=== PATIENT | female | born 1955 | race Caucasian/White ===

== ENCOUNTER 2016-11-02 03:12 | Emergency (ER) | payer MEDICARE, OTHER ==
[2016-11-02] MEDS ORDERED: KETOROLAC TROMETHAMINE 30 MG/1ML VIAL ONE (03:24)
[2016-11-02] MEDS ORDERED: KETOROLAC TROMETHAMINE 30 MG/1ML VIAL IVP ONE (03:26)
[2016-11-02] MEDS ORDERED: MORPHINE SULFATE 4 MG/ML DISP.SYRIN IVP ONE (03:26)
[2016-11-02] MEDS ORDERED: MORPHINE SULFATE 4 MG/ML DISP.SYRIN ONE (03:26)
[2016-11-02] MEDS ORDERED: 0.9 % SODIUM CHLORIDE 1,000 ML IV ONE (03:30)
--- NOTE | 2016-11-02 03:44 | ED Physician Documentation ---
Flank Pain - HISTORIAN Historian: patient - HPI Stated Complaint: left flank pain Chief Complaint: Flank Pain Additional Information: Left flank pain began at midnight. Waxws and wanes, Feels like previous right kidney stone pain, but worse. Duration: sudden-onset Timing: still present Context: denies: out of country travel Quality: sharp, stabbing, other (feels pressure in bladder. ) Associated Symptoms: nausea, vomiting. denies: fever - ROS CONST: no problems - SOCIAL HX Smoking History: non-smoker - FAMILY HX Family History: no significant history - PAST HX Past History: kidney stones (one) Ischemic Bowel Risk Factors: none Surgeries/Procedures: cholecystectomy - VITAL SIGNS Vital Signs: Vital Signs Temp Pulse Resp BP Pulse Ox 97.8 F 70 20 167/73 99 11/02/16 03:13 11/02/16 03:13 11/02/16 03:13 11/02/16 03:13 11/02/16 03:13 Progress - Progress Progress: HISTORY: 61-year-old female with left flank pain, nausea, history of urolithiasis COMPARISON: None available TECHNIQUE: Helical CT images of the abdomen and pelvis were performed without contrast. Sagittal and coronal reformatted images were obtained. FINDINGS: Urinary tract: There is a 4 mm calculus which is either in the left ureterovesicle junction versus urinary bladder lumen (image 296, series 2). There is associated moderate left hydronephrosis, hydroureter, and left perinephric fat stranding. There are bilateral nonobstructing renal calculi. No right ureteral calculi, hydronephrosis, or hydroureter. Miscellaneous: There are patchy ground-glass opacities in the bilateral lower lobes, slightly greater on the left. There is a moderate-sized paraesophageal hiatal hernia with estimated 1/4 of the stomach intrathoracic. The noncontrast liver, spleen, pancreas, adrenal glands are unremarkable. The gallbladder is surgically absent. No abnormal bowel dilatation, free air, free fluid, or suspicious adenopathy. There is descending and sigmoid colon diverticulosis without evidence of acute diverticulitis. The appendix is not dilated and does not appear inflamed. There is a fatty right inguinal indirect hernia. There are mild to moderate degenerative changes of the left hip. There is advanced degenerative disc disease L5-S1 with significant neural foraminal stenosis on the right at this level. IMPRESSION: 1. 4 mm calculus is either in the left ureterovesicle junction versus urinary bladder lumen. There is associated moderate left hydronephrosis and hydroureter. 2. Bilateral nonobstructing nephrolithiasis. 3. Postoperative changes of cholecystectomy. 4. Moderate size hiatal hernia. 5. Patchy ground-glass opacities in the bilateral lower lobes are nonspecific and may be related to scarring, interstitial lung disease, or atypical pneumonia. 6. Fatty right inguinal indirect hernia incidentally noted. 7. No evidence of bowel obstruction, acute appendicitis, or other acute process in the abdomen or pelvis. Electronically signed on Nov 02, 2016 4:51:55 AM CDT by: Cam Cordero ED Results Lab/Radiology - Orders Orders: ED Orders Category Date Time Status CT ABD & PELVIS W/O CON Stat Exams 11/02/16 Ordered UA [URINALYSIS] Routine Lab 11/02/16 Ordered Ketorolac Tromethamine [Toradol] Med 11/02/16 03:24 Discontinued 30 mg .ROUTE .STK-MED ONE Ketorolac Tromethamine [Toradol] Med 11/02/16 03:26 Once 30 mg IVP NOW ONE Morphine Sulfate [DepoDUR] Med 11/02/16 03:26 Discontinued 4 mg .ROUTE .STK-MED ONE Morphine Sulfate [DepoDUR] Med 11/02/16 03:26 Once 4 mg IVP NOW ONE NORMAL SALINE @ 1000 MLS/HR ( 1000ml BOLUS) Med 11/02/16 03:30 Ordered 0.9 % Sodium Chloride [Normal Saline] 1,000 ml IV Q1H Abdominal Pain Physical Exam - Physical Exam General Appearance: moderate distress EENT: eye inspection normal, ENT inspection normal, pharynx normal NECK: normal inspection, supple RESPIRATORY: no resp distress, chest non-tender, breath sounds normal CVS: reg rate & rhythm, heart sounds normal, no murmur ABDOMEN: soft, normal bowel sounds, no distension, non-tender RECTAL: deferred BACK: normal inspection, no CVA tenderness, other (no midline tenderness) SKIN: warm/dry, normal color EXTREMITIES: no evidence of injury, no edema NEURO: CN's nml as tested, motor nml, sensation nml, cognition normal Vital Signs: Vital Signs Temp Pulse Resp BP Pulse Ox 97.8 F 70 20 167/73 99 11/02/16 03:13 11/02/16 03:13 11/02/16 03:13 11/02/16 03:13 11/02/16 03:13 Discharge Clincal Impression: Kidney stone Additional Instructions: Return to the ER if you have fever of 101 or higher or pain you cannot control. Follow up with your provider as needed. Home Medications: Ambulatory Orders Furosemide [Lasix] 40 mg PO D 11/02/16 Ibuprofen [Motrin Ib] 600 mg PO D 11/02/16 Methylprednisolone [Medrol] 8 mg PO D 11/02/16 Potassium Chloride [Klor-Con M20] 20 meq PO D 11/02/16 Tramadol HCl [Ultram] 50 mg PO PRN PRN 11/02/16 Condition: Fair Disposition: 01 HOME, SELF-CARE Decision to Admit: NO Decision Time: 05:10
[2016-11-02 04:10] LABS: BASOPHILS % 0.3 (0.0-1.5); EOSINOPHILS % 0.2 % (0.0-6.8); MEAN CORPUSCULAR HEMOGLOBIN 27.9 pg (28.0-34.0); MEAN CORPUSCULAR VOLUME 84.7 fl (80.0-100.0); MONOCYTES % 2.3 % (0.0-11.0)
[2016-11-02 05:22] LABS: eGFR (African) > 60; eGFR (Non-African) > 60
[2016-11-02 05:52] LABS: APPEARANCE,URINE CLEAR (CLEAR); COLOR,URINE YELLOW (YELLOW); OCCULT BLOOD,URINE 1+ (NEGATIVE)
[2016-11-02 05:53] LABS: UROBILINOGEN URINE 0.2 Eu (0.2-1.0)
--- NOTE | 2016-11-02 05:55 | Diagnostic Imaging Report ---
Name: JOE BAEZ ~~ ~~ : 55 ~~ Acc #: [id number]~~ DOS: Nov 02, 2016 3:50:29 AM CDT ~~ Mod: CT\SR ~~ Desc: CT ABD & PELVIS W/O CO 2 of 2 LASHAY GOETZ~ [address] [id number] ~ ~ ~ ~ Report Submission Date: Nov 02, 2016 4:51:55 AM CDT Patient ~ Study Name: JOE BAEZ ~ Date: Nov 02, 2016 3:50:29 AM CDT ~ Modality Type: CT\SR Gender: F ~ Description: CT ABD & PELVIS W/O CO : 55 ~ Institution: [facility] Physician: LASHAY GOETZ ~ ~ ~ ~ HISTORY: ~ 61-year-old female with left flank pain, nausea, history of urolithiasis COMPARISON: None available TECHNIQUE: Helical CT images of the abdomen and pelvis were performed without contrast. Sagittal and coronal reformatted images were obtained. FINDINGS: Urinary tract: ~There is a 4 mm calculus which is either in the left ureterovesicle junction versus urinary bladder lumen (image 296, series 2). ~ There is associated moderate left hydronephrosis, hydroureter, and left perinephric fat stranding. ~There are bilateral nonobstructing renal calculi. ~ No right ureteral calculi, hydronephrosis, or hydroureter. Miscellaneous: ~There are patchy ground-glass opacities in the bilateral lower lobes, slightly greater on the left. ~There is a moderate-sized paraesophageal hiatal hernia with estimated 1/4 of the stomach intrathoracic. ~The noncontrast liver, spleen, pancreas, adrenal glands are unremarkable. ~The gallbladder is surgically absent. ~No abnormal bowel dilatation, free air, free fluid, or suspicious adenopathy. ~There is descending and sigmoid colon diverticulosis without evidence of acute diverticulitis. ~The appendix is not dilated and does not appear inflamed. There is a fatty right inguinal indirect hernia. There are mild to moderate degenerative changes of the left hip. ~There is advanced degenerative disc disease L5-S1 with significant neural foraminal stenosis on the right at this level. IMPRESSION: 1. ~4 mm calculus is either in the left ureterovesicle junction versus urinary bladder lumen. ~There is associated moderate left hydronephrosis and hydroureter. ~ 2. ~Bilateral nonobstructing nephrolithiasis. 3. ~Postoperative changes of cholecystectomy. 4. ~Moderate size hiatal hernia. 5. ~Patchy ground-glass opacities in the bilateral lower lobes are nonspecific and may be related to scarring, interstitial lung disease, or atypical pneumonia. 6. ~Fatty right inguinal indirect hernia incidentally noted. 7. ~No evidence of bowel obstruction, acute appendicitis, or other acute process in the abdomen or pelvis. ~ Electronically signed on Nov 02, 2016 4:51:55 AM CDT by: Cam SHELL
[2016-11-02 05:58] VITALS: BP 152/69
== END 2016-11-02 05:30 | disposition home or self-care (01) ==
LOC: ED 03:12
DX: N20.0 Calculus of kidney (principal)
CPT/HCPCS: 74176; 80053; 81002; 85025; J1885; J2270; J7030; 96361; 96374; 96375; 99283